=== PATIENT | male | born 1955 | race Two or more races ===

== ENCOUNTER 2019-08-11 01:59 | Emergency (ER) | payer OTHER ==
[~2019-08-11] VITALS: Ht 172.7 cm; Wt 86.2 kg
[2019-08-11 02:04] VITALS: Ht 172.7 cm; Wt 86.2 kg
[2019-08-11 02:31] LABS: BASOPHIL % 0.4 % (0-2); PLATELET COUNT 265 x10^3mcL (130-400); RED CELL DISTRIBUTION WIDTH 14.3 % (11.5-14.5)
[2019-08-11 02:34] LABS: CARBON DIOXIDE 26.9 mmol/L (21-32); CHLORIDE SERUM 92 mmol/L (98-107); CREATININE SERUM 0.8 mg/dL (0.7-1.3); GFR1 > 60 mL/min; GLUCOSE SERUM 105 mg/dL (74-106); SODIUM SERUM 130 mmol/L (136-145)
[2019-08-11 03:37] LABS: UA SPECIFIC GRAVITY <=1.005 (1.005-1.035); microscopic required? YES; urine erythrocyte 1+ (NEGATIVE)
[2019-08-11 04:59] VITALS: BP 125/81
== END 2019-08-11 05:17 | disposition home or self-care (01) ==
LOC: ED 01:59
PROVIDERS: Emergency Medicine
DX: R33.9 Retention of urine, unspecified (principal); R10.30 Lower abdominal pain, unspecified
CPT/HCPCS: 36415